=== PATIENT | male | born 1960 | race Caucasian/White ===

== ENCOUNTER → 2017-01-27 | Day surgery (SDC) | payer OTHER ==
[~2017-01-27] VITALS: Ht 180.3 cm; Wt 95.3 kg
[~2017-01-27] MED LIST: AMBI5TAB PO; BACITRACIN OINT 30GM As Ordered ONE; BACT800T5 PO; BACTRIM 160MG/800MG DS TAB PO SCH; BACTRIM IV 160MG-800MG/10ML VIAL (S0039) IV ONE; GENTAMICIN 100 MG in APPROPRIATE DILUENT 1 EA IV ONE; GLYCOPYRROLATE INJ 0.2 MG/ML 2 ML VIAL As Ordered ONE; HYDR-2808 PO; HYDROmorphone HCL 2 MG/ML 1ML VIAL (J1170) As Ordered ONE; KETOROLAC 60 MG/2 ML VIAL (J1885) As Ordered ONE; LIDOCAINE 2% INJ 100 MG/5 ML SDV (FOR ANES.) As Ordered ONE; LOSA25TA8 PO; LR 1,000 ML IV SCH; METOCLOPRAMIDE INJ 10MG/2ML VIAL (J2765) As Ordered ONE; METOCLOPRAMIDE INJ 10MG/2ML VIAL (J2765) IV PRN; MIDAZOLAM INJ 2 MG/2 ML VIAL (J2250) As Ordered ONE; MORPHINE 2 MG/ML 1ML SYRINGE IV PRN; MORPHINE 4 MG/ML 1ML SYRINGE IV PRN; MOTR200T44 PO; NEOSTIGMINE 1MG/ML 5 ML SYRINGE (J2710) As Ordered ONE; OMEP40CA2 PO; ONDANSETRON 4MG/2ML VIAL (J2405) As Ordered ONE; ONDANSETRON 4MG/2ML VIAL (J2405) IV PRN; PANTOPRAZOLE 40MG INJ (PROTONIX) (C9113) IV SCH; PERCOCET 5MG/325MG TAB PO PRN; PERCOCET PO; PHENYLephrine HCL 500 MCG/5 ML (100MCG/ML) SYRINGE (J2370) As Ordered ONE; PROPOFOL 200 MG/20 ML VIAL As Ordered ONE; VANCOMYCIN HCL 1,000 MG, VIAL MATE ADAPTER 1 EACH in D5W 250 ML IV ONE; dexameTHASONE 4 MG/ML 1ML VIAL (J1100) As Ordered ONE; ePHEDrine SULFATE 25 MG/5 ML(5MG/ML) SYRINGE As Ordered ONE; fentaNYL 100 MCG/2 ML INJECTION (J3010) IV PRN; fentaNYL 250 MCG/5 ML INJECTION (J3010) As Ordered ONE
[2017-01-27 12:17] LABS: ANION GAP 7 MEQ/L (8-16); BLOOD UREA NITROGEN 16 MG/DL (7-18); CALCIUM LEVEL 8.4 MG/DL (8.5-10.1); CARBON DIOXIDE LEVEL 27 MEQ/L (21-32); CHLORIDE LEVEL 106 MEQ/L (98-107); CREATININE FOR GFR 1.23 MG/DL (0.70-1.30); GLOMERULAR FILTRATION RATE > 60.0 (>56); GLUCOSE, FASTING 128 MG/DL (70-105); POTASSIUM SERUM 4.5 MEQ/L (3.5-5.1); SODIUM LEVEL 140 MEQ/L (136-145)
[2017-01-27 12:37] LABS: MEAN CORPUSCULAR HEMOGLOBIN 32.5 pg (27.0-33.0); MEAN CORPUSCULAR HGB CONC 34.2 g/dl (32.0-36.5); MEAN CORPUSCULAR VOLUME 94.9 fl (80.0-96.0); RED CELL DISTRIBUTION WIDTH 12.4 % (11.5-14.5); WHITE BLOOD COUNT 14.8 K/mm3 (4.0-10.0)
[2017-01-27 13:47] VITALS: BP 152/77
--- NOTE | 2017-01-28 20:35 | RO ---
DATE OF PROCEDURE: 01/27/2017 PREOPERATIVE DIAGNOSES: Erectile dysfunction. POSTOPERATIVE DIAGNOSES: Erectile dysfunction. SURGERY PERFORMED: Inflatable penile prosthesis placement, Titan 20 cm in total bilaterally, 18 cm penile prosthesis plus 2 cm of rear tips and a 75 mL reservoir. SURGEON: Gus Guthrie MD TIRE SERVICER: Gallo Moraes, PGY-3 resident, urology ANESTHESIA: General. COMPLICATIONS: None. ESTIMATED BLOOD LOSS: 25 mL. HISTORY OF PRESENT ILLNESS: 56-year-old male patient that has erectile dysfunction and Peyronie's disease that was cured with a Eduarda procedure. The patient has veno-occlusive disease confirmed by penile Doppler ultrasound in the clinic. For this reason, he has consented for inflatable penile prosthesis placement, Titan Coloplast, three piece. PROCEDURE DESCRIPTION: In a patient under general anesthesia in supine position after prepping and draping the area of concern, which included the entire genitalia and abdomen, we started by introducing a Mills catheter, #16-Scottish, to drain the bladder and inflated the balloon to 10 mL. We then proceeded to place the penis shaft in stretch and in the midline, in between the scrotal and the penis in the mid raphe, we did an incision with a cold knife, #15 bisturi, for about 5 cm in length. Through this incision, we cut with the Bovie cautery the subcutaneous tissue until we actually identified the corpora cavernosa on the right side and the corpora cavernosa on the left side. We then proceeded to put a UR-6, #2-0 Vicryl parallel to each other in the corpora cavernosa and actually stretching the corpora cavernosa and sizing incising between both in a longitudinal fashion for about 2 cm, doing two cavernotomies, one on the right and one on the left. We then proceeded to actually dilate the cavernotomy incisions with the Riggs dilators, dilating up to a 13 proximally and 11 distally on both corpora cavernosa. We then proceeded to actually do our dissection in the external inguinal ring with finger dissection. We landed through the external inguinal ring into the floor of the external inguinal ring and opened the floor of the external inguinal ring and passed into the Retzius space. This was to actually place our cloverleaf reservoir, 75 mL. We then proceeded to do our pump sac in the scrotal area by dissecting between both testicles and creating our space for the pump. We then proceeded to prepare the inflatable penile prosthesis. Prior to that, we measured with a Furlough the corpora cavernosa on the right and the left. It measured 20 cm. For this reason, we selected a Titan implant of 18 cm and added 2 cm of rear tips bilaterally. We then proceeded to place, with the help of the Furlough, the inflatable penile prosthesis, right cylinder first and left cylinder second. It fit very well. We tested it and inflated it, and it inflated and deflated very well. We then proceeded to actually close the cavernotomy incisions with #2-0 Vicryl in separate stitches and then inflated the penile prosthesis for about 40 mL. We then proceeded to place our reservoir in the right inguinal area in the Retzius space and then inflated the reservoir for about 65 mL. We then proceeded to actually connect the tubing of the reservoir with the tubing of the penile implant by cutting the tubings and then connecting with the connectors. We then proceeded to place the pump in the scrotal space that was dissected and then closed the incision in two layers with running Vicryl #3-0 and then the skin with #4-0 Monocryl in a running fashion. We placed bacitracin cream and did a mummy wrap with a Kerlix roll around the scrotum and the penis. We then cut the strings from the penile prosthesis and took the strings out and took out the balloon and took out the Mills catheter. PLAN: The patient will pass through recovery. Once he is voiding very well and pain is under control and taking regular diet, he will be discharged home with antibiotic Bactrim for 3 weeks. We will give him 2 weeks, and we will see him back next Wednesday for removal of drapes. He will have Percocet 5/325 one every 6 hours as needed for pain. He cannot use the penile prosthesis. He cannot have sex for 8 weeks. He can shower next Wednesday after we remove the Kerlix rolls. AALIYAH
== END | disposition home or self-care (01) ==
LOC: M SDC 07:00
PROVIDERS: ATTEND Urology
DX: N52.9 Male erectile dysfunction, unspecified (principal); I10 Essential (primary) hypertension; K21.9 Gastro-esophageal reflux disease without esophagitis; Z79.899 Other long term (current) drug therapy
CPT/HCPCS: 36415; 54405; 80048; 85027; 86850; 86900; 86901; C1813; J1100; J1170; J1580; J1885; J2250; J2370; J2405; J2710; J2765; J3010; J3370

== ENCOUNTER → 2018-08-08 | Outpatient (CLI) | payer OTHER ==
[~2018-08-08] MED LIST changes: -AMBI5TAB PO; -BACITRACIN OINT 30GM As Ordered ONE; -BACT800T5 PO; -BACTRIM 160MG/800MG DS TAB PO SCH; -BACTRIM IV 160MG-800MG/10ML VIAL (S0039) IV ONE; +GASTROGRAFIN SOLUTION 30ML (Q9963) As Ordered; -GENTAMICIN 100 MG in APPROPRIATE DILUENT 1 EA IV ONE; -GLYCOPYRROLATE INJ 0.2 MG/ML 2 ML VIAL As Ordered ONE; -HYDR-2808 PO; -HYDROmorphone HCL 2 MG/ML 1ML VIAL (J1170) As Ordered ONE; +ISOVUE-370 76% 100ML VIAL (Q9967) As Ordered; -KETOROLAC 60 MG/2 ML VIAL (J1885) As Ordered ONE; -LIDOCAINE 2% INJ 100 MG/5 ML SDV (FOR ANES.) As Ordered ONE; -LOSA25TA8 PO; -LR 1,000 ML IV SCH; -METOCLOPRAMIDE INJ 10MG/2ML VIAL (J2765) As Ordered ONE; -METOCLOPRAMIDE INJ 10MG/2ML VIAL (J2765) IV PRN; -MIDAZOLAM INJ 2 MG/2 ML VIAL (J2250) As Ordered ONE; -MORPHINE 2 MG/ML 1ML SYRINGE IV PRN; -MORPHINE 4 MG/ML 1ML SYRINGE IV PRN; -MOTR200T44 PO; -NEOSTIGMINE 1MG/ML 5 ML SYRINGE (J2710) As Ordered ONE; -OMEP40CA2 PO; -ONDANSETRON 4MG/2ML VIAL (J2405) As Ordered ONE; -ONDANSETRON 4MG/2ML VIAL (J2405) IV PRN; -PANTOPRAZOLE 40MG INJ (PROTONIX) (C9113) IV SCH; -PERCOCET 5MG/325MG TAB PO PRN; -PERCOCET PO; -PHENYLephrine HCL 500 MCG/5 ML (100MCG/ML) SYRINGE (J2370) As Ordered ONE; -PROPOFOL 200 MG/20 ML VIAL As Ordered ONE; -VANCOMYCIN HCL 1,000 MG, VIAL MATE ADAPTER 1 EACH in D5W 250 ML IV ONE; -dexameTHASONE 4 MG/ML 1ML VIAL (J1100) As Ordered ONE; -ePHEDrine SULFATE 25 MG/5 ML(5MG/ML) SYRINGE As Ordered ONE; -fentaNYL 100 MCG/2 ML INJECTION (J3010) IV PRN; -fentaNYL 250 MCG/5 ML INJECTION (J3010) As Ordered ONE
== END ==
LOC: M RAD 12:46
DX: K75.0 Abscess of liver (principal)

== ENCOUNTER → 2019-02-06 | Outpatient (CLI) | payer OTHER ==
[~2019-02-06] MED LIST changes: +AMBI5TAB PO; +BACT800T5 PO; -GASTROGRAFIN SOLUTION 30ML (Q9963) As Ordered; +HYDR-2808 PO; -ISOVUE-370 76% 100ML VIAL (Q9967) As Ordered; +LOSA25TA14 PO; +MOTR200T44 PO; +OMEP40CA2 PO; +PERCOCET PO
--- NOTE | 2019-02-06 10:53 | REP ---
COMPLETE ABDOMINAL SONOGRAPHY: HISTORY: Right upper quadrant abdomen pain since cholecystectomy. There is apparently also a prior history of liver abscess. Comparison CT study is from August 08, 2018. FINDINGS: Tenderness to scanning was encountered over the right flank near the surgical scar. Common bile duct is normal post cholecystectomy measuring 0.8 cm in greatest diameter. Scanning in the right upper quadrant demonstrates a fluid collection resembling the little traverse gallbladder in the gallbladder fossa. This may be seroma. It measures 1.8 x 4.7 x 2.2 cm. No focal liver lesion is seen. Limited views of the pancreas show no abnormality. There is no evidence of ascites. Normal caliber aorta is seen. There is some aortic ectasia distally up to 2.5 cm in AP dimension. A normal sized homogeneous spleen is seen measuring 8.6 cm in greatest diameter. The right kidney measures 12.5 x 5.9 x 5.1 cm. Left renal dimensions are 11.0 x 5.1 x 6.1 cm. Renal cortical echogenicity pattern is normal. There is no hydronephrosis. IMPRESSION: The patient reports a history of cholecystectomy. There is a fluid collection the approximate size of the little traverse gallbladder in the gallbladder fossa similar to the appearance on CT study in July 2018. This may be hematoma seroma. Incomplete cholecystectomy or gallbladder remnant could explain the findings as well. No focal liver lesion is seen. A distal aortic ectasia is noted. Electronically Signed by Amos Mckinney MD 02/06/2019 11:02 A
== END ==
LOC: M RAD 08:52
DX: R10.10 Upper abdominal pain, unspecified (principal)

== ENCOUNTER → 2019-03-01 | Outpatient (CLI) | payer OTHER ==
--- NOTE | 2019-03-02 09:05 | REP ---
MRI ABDOMEN WITHOUT CONTRAST: TECHNIQUE: Multiple sequences obtained in the axial and coronal planes. IV contrast was not administered. Comparison made with prior CT 08/08/2018. Once again in the upper uncinate process of the pancreas, there is a cystic mass which is multiseptated containing multiple locules of fluid subcentimeter in size. Total dimensions are approximately 3.4 x 2.2 cm. This is essentially unchanged compared to the prior CT. There is slight dilatation of the common bile duct proximally at 8 mm. No definite filling defect is seen in the common bile duct. Pancreatic duct is not dilated. No other pancreatic mass is seen. Visualized liver, spleen, adrenals are unremarkable. There is a subcentimeter cyst in the posterior aspect of left kidney in the mid aspect. There is no hydronephrosis. I see no adenopathy. The visualized abdominal aorta is normal in caliber. No free fluid is seen and I see no evidence of adenopathy in the visualized abdomen. The gallbladder, or a portion of the gallbladder still appears to be present even though reportedly the patient has had a prior cholecystectomy. There is an oval filling defect in the dependent portion measuring 8 x 4 mm which I suspect represents a stone. IMPRESSION: No significant change in the complex cystic mass in the uncinate process of the pancreas compared to prior CT of 08/08/2018. This favors a benign process. There is slight dilatation of the common bile duct at 8 mm. Patient reportedly has had a prior cholecystectomy but there is an oval fluid structure in the gallbladder fossa containing a filling defect probably representing a small stone. This appears to represent a remnant of the gallbladder. Recommend followup MRI of the pancreas in 1 year. Electronically Signed by Jai Dover MD 03/02/2019 04:09 P
== END ==
LOC: M RAD 14:47
PROVIDERS: ATTEND Surgery
DX: R10.11 Right upper quadrant pain (principal); K86.2 Cyst of pancreas

== ENCOUNTER 2022-08-14 13:09 | Inpatient (IN) | payer OTHER ==
[~2022-08-14] VITALS: Ht 180.3 cm; Wt 97.8 kg
[~2022-08-14 13:09] MED LIST changes: -HYDR-2808 PO; +HYDR-4429 PO; +LOSA25TA13 PO; -LOSA25TA14 PO; -OMEP40CA2 PO; +OMEP40CA4 PO
[2022-08-14] MEDS ORDERED: NS 1,000 ML IV SCH (13:25)
[2022-08-14] MEDS ORDERED: ONDANSETRON 4MG 2ML VIAL IV ONE (13:25)
[2022-08-14] MEDS: HYDROMORPHONE HCL 0.5 MG/ 0.5 ML SYRINGE (J1170 PER 1) IV PRN ×4 (13:50→17:59)
[2022-08-14 14:20] LABS: BASO % 0.1 % (0.0-1.0); EOS % 0.3 % (0.0-3.0); HEMATOCRIT 41.1 % (42.0-52.0); HEMOGLOBIN 14.4 g/dl (13.5-17.5); LYMPH # 2.2 10^3/uL (1.5-5.0); LYMPH % 15.1 % (24.0-44.0); MEAN CORPUSCULAR VOLUME 91.3 fl (80.0-96.0); MONO # 0.8 10^3/uL (0.0-0.8); MONO % 5.2 % (2.0-8.0); NEUTROPHILS # 11.5 10^3/uL (1.5-8.5); PLATELET COUNT, AUTOMATED 326 10^3/uL (150-450); WHITE BLOOD COUNT 14.6 10^3/uL (4.0-10.0)
[2022-08-14] MEDS ORDERED: ISOVUE-370 76% 100ML VIAL As Ordered ONE (14:22)
[2022-08-14 14:29] LABS: INR 0.8; PROTHROMBIN TIME 11.3 SECONDS (12.5-14.5)
[2022-08-14 14:45] LABS: ALBUMIN 4.1 GM/DL (3.2-5.2); BILIRUBIN,DIRECT 0.1 MG/DL (0.0-0.2); BILIRUBIN,TOTAL 0.4 MG/DL (0.2-1.0); TOTAL PROTEIN 7.8 GM/DL (6.4-8.2)
[2022-08-14] MEDS ORDERED: PIPERACILLIN/TAZOBACTAM SOD 4.5 GM in D5W MINI-BAG PLUS 50 ML IV ONE (15:00)
[2022-08-14] MEDS ORDERED: NS 2,860 ML in IV 1 EA IV ONE (15:00)
[2022-08-14] MEDS ORDERED: BACI1CAP PO (17:02)
[2022-08-14] MEDS ORDERED: ATOR1TAB19 PO (17:02)
[2022-08-14] MEDS ORDERED: VENTAER INH (17:02)
[2022-08-14] MEDS ORDERED: URSO1TAB8 PO (17:02)
[2022-08-14] MEDS ORDERED: D-101000 PO (17:02)
[2022-08-14] MEDS ORDERED: HOME MED LIST COMPLETE! XX SCH (17:05)
[2022-08-14] MEDS ORDERED: MOM 30ML SUSPENSION UDC PO PRN (17:10)
[2022-08-14] MEDS ORDERED: ACETAMINOPHEN TAB 650MG DOSE (2X325MG) PO PRN (17:10)
[2022-08-14] MEDS ORDERED: ALBUTEROL 90 MCG/ACT 8GM HFA INHALER INH PRN (17:45)
[2022-08-14] MEDS ORDERED: ONDANSETRON 4MG 2ML VIAL IV PRN (18:20)
[2022-08-14] MEDS: NS 1,000 ML IV SCH (19:02)
[2022-08-14] MEDS: KCL 10MEQ/100ML SWI (KRUN) 10 MEQ in IV 1 EA IV SCH ×2 (19:02→19:54)
[2022-08-14 19:11] LABS: RSV AMPLIFICATION NEGATIVE (NEGATIVE)
[2022-08-14] MEDS: PANTOPRAZOLE 40MG VIAL IV SCH (21:09)
[2022-08-14] MEDS: PIPERACILLIN/TAZOBACTAM SOD 4.5 GM in D5W MINI-BAG PLUS 50 ML IV SCH (21:09)
[2022-08-14] MEDS: DOCUSATE SODIUM 100MG CAPSULE PO SCH (21:09)
[2022-08-14] MEDS: PERCOCET 5MG/325MG TAB PO PRN (21:21)
[2022-08-15] MEDS: MAALOX 30 ML SUSP *UDC PO PRN ×2 (00:13→03:22)
[2022-08-15] MEDS: PIPERACILLIN/TAZOBACTAM SOD 4.5 GM in D5W MINI-BAG PLUS 50 ML IV SCH ×4 (03:00→21:24)
[2022-08-15] MEDS: PERCOCET 5MG/325MG TAB PO PRN (03:21)
[2022-08-15] MEDS: NS 1,000 ML IV SCH ×3 (04:17→23:57)
[2022-08-15] MEDS: ENOXAPARIN 40MG/0.4ML SYRINGE (J1650 PER 10MG) SC SCH (08:18)
[2022-08-15 08:19] VITALS: BP 131/73
[2022-08-15] MEDS: DOCUSATE SODIUM 100MG CAPSULE PO SCH ×2 (08:19→20:32)
[2022-08-15] MEDS: MORPHINE 2 MG/ML 1ML VIAL IV PRN ×4 (08:19→21:56)
[2022-08-15] MEDS: PANTOPRAZOLE 40MG VIAL IV SCH ×2 (08:19→21:23)
[2022-08-15] MEDS: ATORVASTATIN 10 MG TAB PO SCH (08:19)
[2022-08-15] MEDS: LOSARTAN 25 MG TAB PO SCH (08:19)
[2022-08-15 08:24] LABS: BASO % 0.2 % (0.0-1.0); HEMOGLOBIN 12.9 g/dl (13.5-17.5); LYMPH % 9.3 % (24.0-44.0); MEAN CORPUSCULAR HEMOGLOBIN 30.9 pg (27.0-33.0); MEAN CORPUSCULAR HGB CONC 33.1 g/dl (32.0-36.5); MEAN CORPUSCULAR VOLUME 93.5 fl (80.0-96.0); MONO % 4.7 % (2.0-8.0); NEUTROPHILS # 18.2 10^3/uL (1.5-8.5); NEUTROPHILS % 85.3 % (36.0-66.0); PLATELET COUNT, AUTOMATED 267 10^3/uL (150-450); RED BLOOD COUNT 4.17 10^6/uL (4.30-6.10); WHITE BLOOD COUNT 21.3 10^3/uL (4.0-10.0)
[2022-08-15 08:47] LABS: ALBUMIN 3.2 GM/DL (3.2-5.2); ALT/SGPT 24 U/L (12-78); BILIRUBIN,TOTAL 0.7 MG/DL (0.2-1.0); BLOOD UREA NITROGEN 12 MG/DL (7-18); CALCIUM LEVEL 9.6 MG/DL (8.8-10.2); CARBON DIOXIDE LEVEL 28 MEQ/L (21-32); CHLORIDE LEVEL 100 MEQ/L (98-107); GLOMERULAR FILTRATION RATE > 60.0 (>49); GLUCOSE, FASTING 123 MG/DL (70-100); MAGNESIUM LEVEL 1.8 MG/DL (1.8-2.4); POTASSIUM SERUM 4.1 MEQ/L (3.5-5.1); SODIUM LEVEL 135 MEQ/L (136-145); TOTAL PROTEIN 6.5 GM/DL (6.4-8.2)
[2022-08-15] MEDS ORDERED: OMEPRAZOLE 20MG CAP PO SCH (09:00)
[2022-08-15 12:00] VITALS: BP 130/70
[2022-08-15] MEDS: METOCLOPRAMIDE INJ 10MG/2ML VIAL (J2765 PER 1) IV SCH ×3 (13:20→21:24)
[2022-08-15 16:00] VITALS: BP 110/62
[2022-08-15 19:20] VITALS: BP 129/67
[2022-08-16] VITALS: BP 135/63
[2022-08-16] MEDS: MORPHINE 2 MG/ML 1ML VIAL IV PRN ×3 (02:01→10:11)
[2022-08-16] MEDS: PIPERACILLIN/TAZOBACTAM SOD 4.5 GM in D5W MINI-BAG PLUS 50 ML IV SCH ×4 (02:01→20:27)
[2022-08-16] MEDS: METOCLOPRAMIDE INJ 10MG/2ML VIAL (J2765 PER 1) IV SCH ×4 (02:01→20:27)
[2022-08-16 04:13] VITALS: BP 112/61
[2022-08-16] MEDS: NS 1,000 ML IV SCH (06:03)
[2022-08-16 06:12] LABS: BASO % 0.2 % (0.0-1.0); EOS # 0.1 10^3/uL (0.0-0.5); EOS % 0.5 % (0.0-3.0); HEMATOCRIT 36.1 % (42.0-52.0); HEMOGLOBIN 11.6 g/dl (13.5-17.5); LYMPH # 1.9 10^3/uL (1.5-5.0); LYMPH % 12.5 % (24.0-44.0); MEAN CORPUSCULAR HEMOGLOBIN 30.9 pg (27.0-33.0); MEAN CORPUSCULAR HGB CONC 32.1 g/dl (32.0-36.5); MONO # 1.1 10^3/uL (0.0-0.8); MONO % 7.5 % (2.0-8.0); NEUTROPHILS # 11.8 10^3/uL (1.5-8.5); NEUTROPHILS % 78.8 % (36.0-66.0); PLATELET COUNT, AUTOMATED 204 10^3/uL (150-450); RED BLOOD COUNT 3.76 10^6/uL (4.30-6.10)
[2022-08-16 06:41] LABS: ALBUMIN 2.8 GM/DL (3.2-5.2); ALT/SGPT 16 U/L (12-78); BILIRUBIN,TOTAL 1.4 MG/DL (0.2-1.0); BLOOD UREA NITROGEN 11 MG/DL (7-18); CALCIUM LEVEL 8.9 MG/DL (8.8-10.2); CARBON DIOXIDE LEVEL 29 MEQ/L (21-32); CHLORIDE LEVEL 105 MEQ/L (98-107); CREATININE FOR GFR 1.17 MG/DL (0.70-1.30); GLOMERULAR FILTRATION RATE > 60.0 (>49); GLUCOSE, FASTING 103 MG/DL (70-100); MAGNESIUM LEVEL 1.9 MG/DL (1.8-2.4); POTASSIUM SERUM 4.1 MEQ/L (3.5-5.1); SODIUM LEVEL 137 MEQ/L (136-145); TOTAL PROTEIN 6.3 GM/DL (6.4-8.2)
[2022-08-16 08:00] VITALS: BP 121/60
[2022-08-16] MEDS: PANTOPRAZOLE 40MG VIAL IV SCH (08:16)
[2022-08-16] MEDS: ENOXAPARIN 40MG/0.4ML SYRINGE (J1650 PER 10MG) SC SCH (08:17)
[2022-08-16] MEDS: LOSARTAN 25 MG TAB PO SCH (08:17)
[2022-08-16] MEDS: ATORVASTATIN 10 MG TAB PO SCH (08:18)
[2022-08-16] MEDS: DOCUSATE SODIUM 100MG CAPSULE PO SCH ×2 (08:18→20:26)
[2022-08-16] MEDS: PERCOCET 5MG/325MG TAB PO PRN ×2 (14:13→20:27)
[2022-08-16 16:00] VITALS: BP 112/64
[2022-08-16] MEDS ORDERED: CIPR500T39 PO (16:39)
[2022-08-16] MEDS ORDERED: PERCOCET PO (16:39)
[2022-08-16] MEDS ORDERED: METR-265 PO (16:39)
[2022-08-16] MEDS ORDERED: OMEPRAZOLE 20MG CAP PO SCH (21:00)
[2022-08-16 22:00] VITALS: BP 125/56
[2022-08-17] MEDS: PERCOCET 5MG/325MG TAB PO PRN (02:30)
[2022-08-17] MEDS: PIPERACILLIN/TAZOBACTAM SOD 4.5 GM in D5W MINI-BAG PLUS 50 ML IV SCH (02:31)
[2022-08-17] MEDS: METOCLOPRAMIDE INJ 10MG/2ML VIAL (J2765 PER 1) IV SCH (02:31)
[2022-08-17 06:00] VITALS: BP 106/60
[2022-08-17 06:45] LABS: BASO % 0.1 % (0.0-1.0); EOS # 0.3 10^3/uL (0.0-0.5); EOS % 3.9 % (0.0-3.0); HEMATOCRIT 35.7 % (42.0-52.0); HEMOGLOBIN 11.6 g/dl (13.5-17.5); LYMPH # 1.9 10^3/uL (1.5-5.0); LYMPH % 25.8 % (24.0-44.0); MEAN CORPUSCULAR HEMOGLOBIN 31.1 pg (27.0-33.0); MEAN CORPUSCULAR HGB CONC 32.5 g/dl (32.0-36.5); MEAN CORPUSCULAR VOLUME 95.7 fl (80.0-96.0); MONO # 0.6 10^3/uL (0.0-0.8); MONO % 7.8 % (2.0-8.0); NEUTROPHILS # 4.6 10^3/uL (1.5-8.5); NEUTROPHILS % 62.1 % (36.0-66.0); PLATELET COUNT, AUTOMATED 220 10^3/uL (150-450); RED BLOOD COUNT 3.73 10^6/uL (4.30-6.10); WHITE BLOOD COUNT 7.4 10^3/uL (4.0-10.0)
[2022-08-17 07:21] LABS: ALT/SGPT 17 U/L (12-78); BILIRUBIN,TOTAL 0.5 MG/DL (0.2-1.0); BLOOD UREA NITROGEN 10 MG/DL (7-18); CALCIUM LEVEL 8.8 MG/DL (8.8-10.2); CARBON DIOXIDE LEVEL 32 MEQ/L (21-32); CHLORIDE LEVEL 105 MEQ/L (98-107); CREATININE FOR GFR 0.97 MG/DL (0.70-1.30); GLOMERULAR FILTRATION RATE > 60.0 (>49); GLUCOSE, FASTING 98 MG/DL (70-100); MAGNESIUM LEVEL 2.5 MG/DL (1.8-2.4); POTASSIUM SERUM 3.7 MEQ/L (3.5-5.1); SODIUM LEVEL 140 MEQ/L (136-145); TOTAL PROTEIN 6.2 GM/DL (6.4-8.2)
== END 2022-08-17 08:20 | disposition home or self-care (01) | DRG 445 ==
LOC: M ED 13:09 → M ED INP 17:09 → ENRESERV 08-15 16:54 → M PCU 08-15 19:07 → M MS5PR 08-16 17:00
PROVIDERS: ADMIT Internal Medicine; ATTEND Internal Medicine
DX: K81.9 Cholecystitis, unspecified (principal); E87.20 Acidosis, unspecified; K31.6 Fistula of stomach and duodenum; K86.2 Cyst of pancreas; K29.80 Duodenitis without bleeding; K21.9 Gastro-esophageal reflux disease without esophagitis; E86.0 Dehydration; J40 Bronchitis, not specified as acute or chronic; I10 Essential (primary) hypertension; Z79.899 Other long term (current) drug therapy; Z88.8 Allergy status to other drugs, medicaments and biological substances; Z95.2 Presence of prosthetic heart valve

== ENCOUNTER 2023-06-15 06:36 | Day surgery (SDC) | payer OTHER ==
[~2023-06-15] VITALS: Ht 180.3 cm; Wt 99.2 kg
[~2023-06-15 06:36] MED LIST changes: +ATOR1TAB19 PO; +BACI1CAP PO; +CIPR500T39 PO; +CYCLOPENTOLATE 1% OPHTH SOLN 2ML BTL OD SCH; +D-101000 PO; +FLOM0.4C39 PO; +HYDR-3713 PO; +LIDO5TD TOP; +METH-1165 PO; +METR-265 PO; +OFLOXACIN 0.3 % (OCUFLOX) OPTH SOL 5ML OD SCH; +OXYB5TAB10 PO; +PHENYLEPHRINE 2.5% OPHTH SOL 2ML OD SCH; +PRAZ1CAP PO; +PROPARACAINE 0.5% OPHTH SOL 15ML OD ONE; +SUMA50TA2 PO; +TROPICAMIDE 1% OPHTH SOLN 15ML OD SCH; +URSO1TAB8 PO; +VENTAER INH
[2023-06-15] MEDS ORDERED: LIDOCAINE 1% SDV 5ML VIAL As Ordered ONE (06:58)
[2023-06-15] MEDS ORDERED: CEFUROXIME 1MG/0.1ML INTRACAMERAL INJ As Ordered ONE (06:58)
[2023-06-15] MEDS ORDERED: BSS IRR 500ML/OMIDRIA 4ML IRR BAG (OR ONLY) As Ordered ONE (06:59)
[2023-06-15] MEDS ORDERED: MIDAZOLAM INJ 2MG/2ML VIAL As Ordered ONE ×2 (08:25→08:34)
[2023-06-15 09:10] VITALS: BP 161/98; TEMP 98.5; O2SAT 97
== END 2023-06-15 09:12 | disposition home or self-care (01) ==
LOC: M SDC 06:36
PROVIDERS: ATTEND Ophthalmology
DX: H25.11 Age-related nuclear cataract, right eye (principal); I10 Essential (primary) hypertension; E78.5 Hyperlipidemia, unspecified; K21.9 Gastro-esophageal reflux disease without esophagitis; G43.909 Migraine, unspecified, not intractable, without status migrainosus; F10.10 Alcohol abuse, uncomplicated; Z79.899 Other long term (current) drug therapy; Z88.8 Allergy status to other drugs, medicaments and biological substances
CPT/HCPCS: 66984; J0697; J1097; J2250; V2632

== ENCOUNTER → 2023-06-29 | Day surgery (SDC) | payer MEDICARE, OTHER ==
[~2023-06-29] VITALS: Ht 180.3 cm; Wt 97.9 kg
[~2023-06-29] MED LIST changes: +BSS IRR 500ML/OMIDRIA 4ML IRR BAG (OR ONLY) As Ordered ONE; +CEFUROXIME 1MG/0.1ML INTRACAMERAL INJ As Ordered ONE; -CYCLOPENTOLATE 1% OPHTH SOLN 2ML BTL OD SCH; +CYCLOPENTOLATE 1% OPHTH SOLN 2ML BTL OS SCH; +LIDOCAINE 1% SDV 5ML VIAL As Ordered ONE; +MIDAZOLAM INJ 2MG/2ML VIAL As Ordered ONE; -OFLOXACIN 0.3 % (OCUFLOX) OPTH SOL 5ML OD SCH; +OFLOXACIN 0.3 % (OCUFLOX) OPTH SOL 5ML OS SCH; -PHENYLEPHRINE 2.5% OPHTH SOL 2ML OD SCH; +PHENYLEPHRINE 2.5% OPHTH SOL 2ML OS SCH; -PROPARACAINE 0.5% OPHTH SOL 15ML OD ONE; +PROPARACAINE 0.5% OPHTH SOL 15ML OS ONE; -TROPICAMIDE 1% OPHTH SOLN 15ML OD SCH; +TROPICAMIDE 1% OPHTH SOLN 15ML OS SCH; +fentaNYL 100 MCG/2 ML INJECTION As Ordered ONE
[2023-06-29 10:20] VITALS: BP 125/73; TEMP 97.7; O2SAT 95
== END | disposition home or self-care (01) ==
LOC: M SDC 07:54
PROVIDERS: ATTEND Ophthalmology
DX: H25.12 Age-related nuclear cataract, left eye (principal); I10 Essential (primary) hypertension; E78.5 Hyperlipidemia, unspecified; K21.9 Gastro-esophageal reflux disease without esophagitis; G43.909 Migraine, unspecified, not intractable, without status migrainosus; Z79.51 Long term (current) use of inhaled steroids; Z79.899 Other long term (current) drug therapy; Z88.8 Allergy status to other drugs, medicaments and biological substances
CPT/HCPCS: 66984; J0697; J1097; J2250; J3010; V2632